=== PATIENT | male | born 1980 | race Caucasian/White ===

== ENCOUNTER 2019-02-08 15:32 | Emergency (ER) | payer SELFPAY, OTHER ==
[2019-02-08] MEDS: IBUPROFEN 600 MG TAB PO (17:42)
== END 2019-02-08 18:08 | disposition left against medical advice (07) ==
LOC: FTE 15:32
DX: S43.402A Unspecified sprain of left shoulder joint, initial encounter (principal); F17.210 Nicotine dependence, cigarettes, uncomplicated; S89.92XA Unspecified injury of left lower leg, initial encounter; V00.831A Fall from motorized mobility scooter, initial encounter
CPT/HCPCS: 99282